=== PATIENT | female | born 1950 | race Caucasian/White ===

== ENCOUNTER 2017-04-29 08:50 | Day surgery (SDC) | payer MEDICARE, OTHER ==
[2017-04-29] VITALS (22 sets, daily range): BP systolic 61–172; BP diastolic 67–81; PULSE 58–73; RESP 10–24; Ht 153.7 cm; Wt 65.5 kg
[~2017-04-29] VITALS: Ht 153.7 cm; Wt 65.5 kg
[2017-04-29] MEDS ORDERED: ESOM40CA PO (09:17)
[2017-04-29] MEDS ORDERED: LEVO50TA83 PO (09:17)
[2017-04-29] MEDS ORDERED: METF850T PO ×2 (09:19)
[2017-04-29] MEDS ORDERED: GABA100C14 PO (09:24)
[2017-04-29] MEDS ORDERED: [UNRECOGNIZED DRUG - CODE] PO (09:25)
[2017-04-29] MEDS ORDERED: ATOR20TA38 PO (09:26)
[2017-04-29] MEDS ORDERED: METO-335 PO (09:27)
[2017-04-29] MEDS ORDERED: ASPI-664 PO (09:28)
[2017-04-29] MEDS ORDERED: RANO500T2 PO (09:32)
[2017-04-29] MEDS ORDERED: CLOP75TA27 PO (09:32)
[2017-04-29] MEDS ORDERED: ALBU8.5H3 INH (09:33)
[2017-04-29] MEDS ORDERED: UBID50TA PO (09:34)
[2017-04-29] MEDS ORDERED: BIOT5000 PO (09:35)
[2017-04-29] MEDS ORDERED: MULT1TAB6 PO (09:36)
[2017-04-29 10:00] LABS: BASOPHILS % 0.6 % (0.0-2.0); EOSINOPHILS # 0.2 10^3/ul (0.0-0.5); EOSINOPHILS % 4.5 % (0.0-7.0); HEMATOCRIT 35.7 % (37.0-47.0); HEMOGLOBIN 11.1 g/dl (12.0-16.0); LYMPHOCYTES # 1.1 10^3/ul (0.8-2.9); LYMPHOCYTES % 20.5 % (15.0-51.0); MEAN CORPUSCULAR HEMOGLOBIN 24.9 pg (29.0-33.0); MEAN CORPUSCULAR HGB CONC 31.1 g/dl (32.0-37.0); MEAN PLATELET VOLUME 10.6 fl (7.4-10.4); MONOCYTE # 0.4 10^3/ul (0.3-0.9); NEUTROPHIL # 3.4 10^3/ul (1.6-7.5); NEUTROPHILS % 65.8 % (39.0-77.0); PLATELET COUNT 252 10^3/UL (140-415); RED BLOOD COUNT 4.46 10^6/ul (4.20-5.40); RED CELL DISTRIBUTION WIDTH 15.3 % (11.5-14.5); WHITE BLOOD COUNT 5.1 10^3/ul (4.8-10.8)
[2017-04-29 10:24] LABS: ALANINE AMINOTRANSFERASE 39 IU/L (13-69); ALBUMIN/GLOBULIN RATIO 1.29; ALKALINE PHOSPHATASE 45 IU/L (42-121); ASPARTATE AMINO TRANSFERASE 28 IU/L (15-46); BILIRUBIN,INDIRECT 0.3 mg/dl (0-1.1); BILIRUBIN,TOTAL 0.3 mg/dl (0.2-1.3); CHLORIDE 104 mmol/L (97-110); CHOL/HDL RATIO 2.3 RATIO; CHOLESTEROL 163 mg/dl (100-200); CREATINE KINASE 131 IU/L (23-200); GLUCOSE 137 mg/dl (70-220); HDL CHOLESTEROL 68 mg/dl (35-98); INR 1.04; PROTIME 13.6 Sec (12.2-14.2); PT RATIO 1.1; TOTAL PROTEIN 7.1 g/dl (6.1-8.1); TRIGLYCERIDES 69 mg/dl (0-149)
[2017-04-29 10:36] LABS: CK-MB 2.59 ng/ml (0.0-2.4)
[2017-04-29 10:43] LABS: BLOOD UREA NITROGEN 10 mg/dl (7-20); CALCIUM 9.1 mg/dl (8.4-10.2); CREATININE 0.65 mg/dl (0.44-1.00); POTASSIUM 3.6 mmol/L (3.5-5.1); SODIUM 143 mmol/L (135-144); TROPONIN-I < 0.012 ng/ml (0.00-0.12)
[2017-04-29 11:26] LABS: ANION GAP 15 (8-16); CARBON DIOXIDE 28 mmol/L (21-31)
[2017-04-29] MEDS ORDERED: HEPARIN 1000 UNITS/ML 10 ML INJ ONE (11:47)
[2017-04-29] MEDS ORDERED: LIDOCAINE 1% (MDV) 20 ML INJ ONE (11:47)
[2017-04-29] MEDS ORDERED: FENTAnyl 50 MCG/ML VIAL ONE (11:47)
[2017-04-29] MEDS ORDERED: MIDAZOLAM 1 MG/ML 2 ML INJ ONE (11:48)
[2017-04-29] MEDS ORDERED: IODIXANOL LOCM 100 ML BTL ONE (12:26)
[2017-04-29] MEDS ORDERED: SOD CHLORIDE 0.9% 500 ML ONE (12:26)
[2017-04-29] MEDS ORDERED: SOD CHLORIDE 0.9% 1,000 ML IV SCH (12:49)
--- NOTE | 2017-04-29 12:49 | OPR ---
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 Left heart catheterization, selective right and left coronary angiogram 2. right femoral angiogram 3. moderate sedation for more than 45 minutes. Head Of History: Stoney Spring MD Indication:: EXERTIONAL CHEST PAIN AND ABNORMAL STRESS ECHO Findin. Left main coronary artery: Is normal. 2. Left anterior descending artery: Its a small size vessel and goes around the apex. It has 30% stenosis proximally, and mild stenosis of the mid LAD. It is a tortuous vessel. 3. Left circumflex artery: Is small and nondominant. It has no significant stenosis. 4. Right coronary artery: Is a dominant but small vessel. It has 20%% stenosis. 5. RI: is moderate size vessel with no significant stenosis. LV pressure: 22; no significant aortic gradient noted. Written informed consent with obtained after risks benefits and alternatives discussed with the patient in detail. risks including but not limited to risk of infection vascular complications, bleeding complications, OR stroke arrhythmia renal failure at even were discussed with the patient in detail. Patient was brought into the cardiac laborer aquatic life and placed in supine position. Right and left groin area was prepped and draped in regular sterile fashion and then he was in anesthetized using 1% lidocaine. Right femoral artery was cannulated and using modified seldinger technique a 6 Russian sheath was placed in the right femoral artery. Right femoral angiogram was performed. JL4 catheter was advanced and engaged into the left main coronary artery and angiographic view was obtained. The JR4 catheter was advanced and engaged right coronary artery angiographic view was obtained. JR4 was advanced to engage the left ventricle hemodynamics as recorded by pullback aortic pressure was measured Patient tolerated procedure well with no complication. Patient is to be transferred to recovery room in stable condition. contrast used: 60 cc Conclusions: very small coronary arteries but with no significant stenosis Recommendations: medical therapy. STONEY SPRING MD Apr 29, 2017 12:49
[2017-04-29] MEDS ORDERED: ALBUTEROL 18 GM INHALER INH PRN (13:00)
[2017-04-29] MEDS ORDERED: METOPROLOL (XL) 25 MG TAB PO SCH (13:07)
[2017-04-29] MEDS ORDERED: IBUPROFEN 400 MG TAB PO PRN (13:30)
[2017-04-29] MEDS ORDERED: GABAPENTIN 100 MG CAP PO SCH (21:00)
[2017-04-29] MEDS ORDERED: ATORVASTATIN 20 MG TAB PO SCH (21:00)
[2017-04-29] MEDS ORDERED: RANOLAZINE (SR) 500 MG TAB PO SCH (21:00)
[2017-04-30] MEDS ORDERED: LEVOTHYROXINE 50 MCG TAB PO SCH (07:00)
[2017-04-30] MEDS ORDERED: ASPIRIN (EC) 81 MG TAB PO SCH (09:00)
[2017-04-30] MEDS ORDERED: ESTROGENS CONJUGATED 0.45 MG PO SCH (09:00)
== END 2017-04-29 17:15 | disposition home or self-care (01) ==
LOC: SDS 08:50 → CCL 08:50
PROVIDERS: ATTEND Internal Medicine Interventional Cardiology
DX: R07.9 Chest pain, unspecified (principal); R94.39 Abnormal result of other cardiovascular function study
CPT/HCPCS: 80053; 80061; 82550; 82553; 82962; 84484; 85025; 85610; 85730; 93458; C1760; C1887; C1894; J1644; J2250; J3010; J7040; Q9967